=== PATIENT | female | born 1955 | race African-American/Black ===

== ENCOUNTER 2017-02-03 12:27 | Emergency (ER) | payer MEDICAID ==
[~2017-02-03] VITALS: Ht 165.1 cm; Wt 66.0 kg
[2017-02-03 19:34] LABS: BASOPHILS % 0.9 % (0.0-2.0); EOSINOPHILS % 2.5 % (0.0-5.0); HEMATOCRIT. 37.7 % (36.0-48.0); HEMOGLOBIN. 12.5 g/dL (12.0-16.0); LYMPHOCYTES % 33.5 % (20.0-50.0); MEAN CORPUSCULAR HEMOGLOBIN 29.3 pg (28.0-32.0); MEAN CORPUSCULAR VOLUME 88.1 fL (81.0-99.0); MEAN PLATELET VOLUME 8.6 fl (7.4-10.4); NEUTROPHILS % 52.1 % (40.0-76.0); PLATELET 308 x1000/uL (130-400); RED BLOOD CELL COUNT 4.27 mill/uL (4.2-5.4); RED CELL DISTRIBUTION WIDTH 14.2 % (11.6-14.6)
[2017-02-03 19:39] LABS: CHLORIDE 105 mEq/L (98-107)
[2017-02-03 19:41] LABS: CARBON DIOXIDE 33 mEq/L (21-32)
[2017-02-03 20:46] VITALS: BP 175/95
== END 2017-02-03 20:45 | disposition home or self-care (01) ==
LOC: ER 12:54
DX: R51 Headache (principal); E03.9 Hypothyroidism, unspecified
CPT/HCPCS: 36415; 80053; 85025; 99284